=== PATIENT | female | born 1955 | race Caucasian/White ===

== ENCOUNTER 2019-02-13 18:58 | Outpatient (REF) | payer OTHER, SELFPAY ==
[2019-02-13 19:32] LABS: Anion Gap 10.1 mmol/L (3-11); BUN 19 mg/dL (7-18); CO2 28.9 mmol/L (21.0-32.0); CREATININE 0.97 mg/dL (0.55-1.02); Calcium 9.5 mg/dL (8.5-10.1); Chloride 103 mmol/L (98-107); Glucose 104 mg/dL (74-106); Potassium 3.7 mmol/L (3.5-5.1); Sodium 142 mmol/L (136-145); TSH 1.51 uIU/mL (0.36-3.74)
== END 2019-02-13 19:18 ==
LOC: NCHCN 18:58
PROVIDERS: PCP Internal Medicine; Visit Provider Internal Medicine
DX: I10 Essential (primary) hypertension (principal)
CPT/HCPCS: 80048; 84443

== ENCOUNTER 2020-11-08 17:26 | Outpatient (REF) | payer SELFPAY ==
[2020-11-08 18:28] LABS: HGB 13.5 g/dL (11.2-15.7); MCH 30.7 pg (27.0-33.0); MCHC 33.8 % (32.0-36.0); MCV 90.9 fL (80-95); MPV 9.4 fL (8.0-11.0); Platelet Count 326 10^3/uL (130-400); RDW 12.1 % (11.7-14.6); RDW-SD 40.5 fL; WBC 5.43 10^3/uL (4.4-10.8)
[2020-11-08 18:59] LABS: BUN 17 mg/dL (7-18); CREATININE 0.9 mg/dL (0.55-1.02); Calcium 9.8 mg/dL (8.5-10.1); Chloride 103 mmol/L (98-107); Glucose 114 mg/dL (74-106); Potassium 3.7 mmol/L (3.5-5.1); Sodium 141 mmol/L (136-145); TSH 1.15 uIU/mL (0.36-3.74)
== END 2020-11-08 17:27 | disposition home or self-care (01) ==
LOC: NCHCN 17:26
PROVIDERS: PCP Internal Medicine; Visit Provider Internal Medicine
DX: Z00.00 Encounter for general adult medical examination without abnormal findings (principal); I10 Essential (primary) hypertension
CPT/HCPCS: 80048; 85027; 84443

== ENCOUNTER 2021-03-31 13:49 | Outpatient (REF) | payer MEDICARE, SELFPAY ==
--- NOTE | 2021-03-31 13:00 | PAPFT_PTH ---
PATIENT: Kimberlee Crwaford LOC: [facility] U#:[id number] AGE/SX: 66/F ROOM: RE03/31/[address]: JACKY Bernardo : 1955 BED: DIS: 03/31/2021 SPEC #: [id number] RECD: 03/31/21 17:29 STATUS: NATE RE[place] #: [id number] AGGIE: 03/31/21 13:[address]: Vianca Rae DEPT: [facility] Cytology RECD BY: Solange Guzmán ENTERED: 03/31/21 17:30 SP TYPE: PAPFT OTHR DR: Tacos Sibley Tissues: 1 - CX/ENDOCX FOR PAP SMEARS Procedures: PAP THIN PREP/[facility] Screening HPV DNA PROBE Comments: [id number]
--- OUTSIDE RECORDS SUMMARY | 2021-03-31 13:53 | XMS_ITS ---
:1955 Author Care Team Providers Name Role Phone JONNY ARCEO MD Primary Care Provider [phone] Allergies Code Code System Name Reaction Severity Status Onset NKDA ? Medications Name Status Start Date Stop Date ? ? Afluria Quad 5836-2587 (PF) 60 Active ? N ot available mcg/0.5 mL intramuscular syringe amoxicillin 875 mg-potassium Active ? Not available clavulanate 125 mg tablet lorazepam 0.5 mg tablet Completed 10/22/2009 10/24/19 10 1 (one) Tablet: See comments losartan 100 Active ? Not available mg-hydrochlorothiazide 25 mg tablet losartan 50 Active ? Not available mg-hydrochlorothiazide 12.5 mg tablet meclizine 25 mg tablet Completed 10/22/2009 1 1 (one) Tablet: at bedtime Problems Name Status Onset Date Source ? Benign Hypertension Active 07/09/2017 ? Epidermoid Cyst of Skin Active ? History Neck Pain Active ? History Dizziness and Giddiness Active ? History Long-term Current Use of Drug Therapy Active ? History Procedure by Method Active ? History Pain of Left Thigh Active ? History Procedures Date Name Performed by ? 07/15/2017 XR, Knee, 4 or More View [facility] (Internal) [address] [place] [address] (Work Place) Notes: none as of 06/28/17 Results Lab Results None recorded. Past Encounters None recorded. Social History Tobacco Smoking Status Never Smoker Vaccine List None recorded. Plan of Care Reminders Provider Appointments None ? ? recorded. Lab None ? ? recorded. Referral None ? ? recorded. Procedures None ? ? recorded. Surgeries None ? ? recorded. Imaging None ? ? recorded. Vitals 07/15/2017 11:30AM Consult 30 Height Weight BMI 165.1 cm 72.57 kg 26.6 kg/m2 10/15/2015 Height Weight 142.24 cm 72.57 kg
== END 2021-03-31 13:50 | disposition home or self-care (01) ==
LOC: LBN 13:49
PROVIDERS: PCP Internal Medicine; Visit Provider Nurse Practitioner Family
DX: Z11.51 Encounter for screening for human papillomavirus (HPV) (principal); Z12.4 Encounter for screening for malignant neoplasm of cervix; Z01.419 Encounter for gynecological examination (general) (routine) without abnormal findings; R87.610 Atypical squamous cells of undetermined significance on cytologic smear of cervix (ASC-US)
CPT/HCPCS: 88142; 87624

== ENCOUNTER 2021-08-26 00:24 | Outpatient (CLI) | payer MEDICARE, SELFPAY ==
--- NOTE | 2021-08-26 08:00 | ETT_ITS ---
APPROVED REPORT Exam: Exercise Treadmill Patient Location: Out-Patient Room/Bed: Stress Nurse: Torir Irvin RN Ordering Provider:JONNY ARCEO, Contact Number: [phone] BMI: 25.82 Baseline Rhythm: Sinus Rhythm Comment: Inverted T waves lead V2 Indications: Chest pain Medical History Medical History: Hypertension Cardiac Medications: Losartan-hydrochlorothiazide Allergies: NKDA Cardiac Risk Factors: Hypertension, family hx Previous Cardiac Procedures: None Pretest Chest Pain Characteristics: None Exercise History: Sedentary Physical Disabilities: L leg pain Lung Sounds: Clear to auscultation Heart Sounds: Regular Stress Test Details Test: Exercise stress testing was performed using a Gerard protocol. Rest Stress HR Resting HR Supine: 70 bpm Max Heart Rate (APMHR): 155 bpm Resting HR Standin bpm Target HR (85% APMHR): 131 bpm Max HR Achieved: 171 bpm % of APMHR: 110 Recovery HR: 87 bpm HR response to stress: Normal HR response to stress BP Resting BP Supine: 148/78 mmHg Resting BP Standin/80 mmHg Max BP: 178/110 mmHg Recovery BP: 130/82 mmHg BP response to stress: Normal blood pressure response to stress. ECG Resting ECG: Sinus Rhythm Ectopy: None Comment: Inverted T waves lead V2 Stress ECG: Sinus Tachycardia ST Change: No significant ST segment changes noted Arrhythmia: None, None, APC's, VPC's Recovery ECG: Sinus Rhythm Recovery ST Change: No significant ST segment changes noted Recovery Arrhythmia: None Clinical Reason for Termination: Fatigue, L leg pain Stress Symptoms: General Fatigue Exercise duration: 9 min25 sec Highest Stage Reached: Stage 4: 4.2 mph at 16% grade. Exercise capacity: 10.84 METs Angina Score: None Jaquez Treadmill Score: 8.2 Rate Pressure Product: [id number] Stress ECG Conclusion 1. The resting electrocardiogram was within normal limits 2. Patient exercised on the Gerard protocol and completed a workload of 10.84 METS, limited by fatigue 3. Normal heart rate and blood pressure response to exercise. The patient achieved greater than 100% of predicted heart rate for age 4. There was no electrocardiographic evidence of myocardial ischemia 5. There were no significant dysrhythmias Jaquez Treadmill Score is 8.2 which is Low risk. Stress Test Summary STAGE Time (mins) Speed (mph) Grade (%) HR BP SpO2 SYMPTOMS METS Supine 70 148/78 SPO2 98% Standing 76 148/80 SPO2 98% 1 3 1.7 10 109 154/84 SPO2 96% 4.5 2 6 2.5 12 143 158/88 SPO2 96% 7 3 9 3.4 14 162 178/80 SPO2 96% 10 4 12 4.2 16 171 SPO2 94% 13 1 min recovery 138 152/90 SPO2 96% 3 min recovery 107 178/110 SPO2 98% 6 min recovery 87 130/82 SPO2 98%
== END 2021-08-26 00:44 ==
LOC: DI 00:24
PROVIDERS: PCP Internal Medicine; Visit Provider Internal Medicine
DX: R07.9 Chest pain, unspecified (principal)
CPT/HCPCS: 93016; 93018; 93017

== ENCOUNTER 2022-01-15 12:59 | Outpatient (REF) | payer MEDICARE, SELFPAY ==
[2022-01-15 20:14] LABS: Anion Gap 7.7 mmol/L (3-11); BUN 18 mg/dL (7-18); CO2 29.3 mmol/L (21.0-32.0); CREATININE 0.8 mg/dL (0.55-1.02); Calcium 9.7 mg/dL (8.5-10.1); Calculated LDL 144 mg/dL (<100); Chloride 103 mmol/L (98-107); Cholesterol 235 mg/dL (<200); Estimated GFR 81.72 (mL/min/1.73m2); Glucose 106 mg/dL (74-106); HDL Cholesterol 53 mg/dL (40-60); Sodium 140 mmol/L (136-145); Triglyceride 192 mg/dL (<150)
== END 2022-01-15 13:00 | disposition home or self-care (01) ==
LOC: NCHCN 12:59
PROVIDERS: PCP Internal Medicine; Visit Provider Internal Medicine
DX: I10 Essential (primary) hypertension (principal); R00.2 Palpitations
CPT/HCPCS: 80048; 80061

== ENCOUNTER 2022-04-03 13:52 | Outpatient (REF) | payer MEDICARE, SELFPAY ==
--- NOTE | 2022-04-03 13:40 | PAPFT_PTH ---
PATIENT: Kimberlee Crawford LOC: [facility] U#:[id number] AGE/SX: 67/F ROOM: RE04/03/[address]: Catalina Cruz DO : 1955 BED: DIS: 04/03/2022 SPEC #: [id number] RECD: 04/03/22 16:47 STATUS: NATE REQ #: [id number] AGGIE: 04/03/22 13:[address]: Catalina Cruz DEPT: [facility] Cytology RECD BY: Solange Guzmán ENTERED: 04/03/22 16:48 SP TYPE: PAPFT OTHR DR: Tacos Sibley Tissues: 1 - CX/ENDOCX FOR PAP SMEARS Procedures: PAP THIN PREP/[facility] Screening HPV DNA PROBE Comments: [id number]
== END 2022-04-03 13:53 | disposition home or self-care (01) ==
LOC: LBN 13:52
PROVIDERS: PCP Internal Medicine; Visit Provider Obstetrics & Gynecology
DX: Z11.51 Encounter for screening for human papillomavirus (HPV); Z01.419 Encounter for gynecological examination (general) (routine) without abnormal findings
CPT/HCPCS: 88142; 87624

== ENCOUNTER 2023-02-24 18:51 | Outpatient (REF) | payer OTHER, SELFPAY ==
[2023-02-24 20:28] LABS: ALT 28 U/L (14-59); AST 29 U/L (15-37); Alkaline Phosphatase 56 U/L (46-116); Anion Gap 10.6 mmol/L (3-11); BUN 15 mg/dL (7-18); Bilirubin, Total 0.9 mg/dL (0.2-1.0); CO2 25.4 mmol/L (21.0-32.0); Calcium 9.7 mg/dL (8.5-10.1); Calculated LDL 194 mg/dL (<100); Chloride 101 mmol/L (98-107); Cholesterol 277 mg/dL (<200); Estimated GFR 61.75 (mL/min/1.73m2); Glucose 85 mg/dL (74-106); HDL Cholesterol 55 mg/dL (40-60); Potassium 3.9 mmol/L (3.5-5.1); Sodium 137 mmol/L (136-145); TSH 1.01 uIU/mL (0.36-3.74); Total Protein 7.7 g/dL (6.4-8.2); Triglyceride 144 mg/dL (<150)
== END 2023-02-24 18:52 | disposition home or self-care (01) ==
LOC: NCHCN 18:51
PROVIDERS: PCP Internal Medicine; Visit Provider Internal Medicine
DX: R53.83 Other fatigue (principal); E78.89 Other lipoprotein metabolism disorders
CPT/HCPCS: 80053; 80061; 84443

== ENCOUNTER 2024-05-26 23:18 | Outpatient (REF) | payer MEDICARE, SELFPAY ==
[2024-05-26 19:13] LABS: Anion Gap 9.3 mmol/L (3-11); BUN 10 mg/dL (7-18); CO2 25.7 mmol/L (21.0-32.0); CREATININE 0.9 mg/dL (0.55-1.02); Calcium 9.8 mg/dL (8.5-10.1); Calculated LDL 150 mg/dL (<100); Chloride 106 mmol/L (98-107); Cholesterol 240 mg/dL (<200); Estimated GFR 69.64 (mL/min/1.73m2); Glucose 93 mg/dL (74-106); HDL Cholesterol 67 mg/dL (>or=50); Potassium 4.3 mmol/L (3.5-5.1); Sodium 141 mmol/L (136-145); TSH 1.66 uIU/mL (0.36-3.74); Triglyceride 117 mg/dL (<150)
[2024-05-29 10:50] LABS: Hepatitis C Ab w Rflx HCV PCR Negative (Negative)
== END 2024-05-26 23:19 | disposition home or self-care (01) ==
LOC: NCHCN 23:18
PROVIDERS: PCP Internal Medicine; Visit Provider Internal Medicine
DX: I10 Essential (primary) hypertension (principal); E78.00 Pure hypercholesterolemia, unspecified; Z11.59 Encounter for screening for other viral diseases
CPT/HCPCS: 80048; 80061; 86803; 84443

== ENCOUNTER 2024-12-21 09:14 | Outpatient (REF) | payer MEDICARE, SELFPAY ==
[2024-12-21 19:40] LABS: Anion Gap 6.8 mmol/L (3-11); BUN 16 mg/dL (9-23); CO2 26.2 mmol/L (20.0-31.0); Calcium 9.5 mg/dL (8.3-10.6); Chloride 106 mmol/L (98-107); Cholesterol 197 mg/dL (<200); Glucose 91 mg/dL (74-106); HDL Cholesterol 64 mg/dL (>40); Potassium 4.1 mmol/L (3.5-5.1); Sodium 139 mmol/L (136-145)
== END 2024-12-21 09:15 | disposition home or self-care (01) ==
LOC: NCHCN 09:14
PROVIDERS: PCP Internal Medicine; Visit Provider Internal Medicine
DX: E78.00 Pure hypercholesterolemia, unspecified (principal)
CPT/HCPCS: 80048; 80061